=== PATIENT | male | born 1975 | race Caucasian/White ===

== ENCOUNTER 2017-01-29 05:30 | Day surgery (SDC) | payer BC ==
[~2017-01-29] VITALS: Ht 188 cm; Wt 135.2 kg
--- NOTE | ~2017-01-29 | OP ---
PATIENT NAME: ZULAY KENNEY MEDICAL RECORD: [id number] :79 LOCATION:D.OPS ADMISSION DATE: SURGEON: ARIEL FRANCO MD DATE OF OPERATION: 01/29/2017 SURGEON: Ariel Franco MD. ANESTHESIA: MAC by Dr. Rogers. PREOPERATIVE DIAGNOSIS: Male sterilization. PROCEDURE: Vasectomy. FINDINGS: Bilateral vas deferens. SPECIMENS: Bilateral vas segments. ESTIMATED BLOOD LOSS: None. CLINICAL HISTORY: This is a 41-year-old male, who wishes to have elective male sterilization. They have 2 children. He is otherwise in good health. He was given Ancef 2 grams IV mailroom personnel to the OR. DESCRIPTION OF PROCEDURE: The patient was shaved, prepped and draped in supine position. The right vas was identified. Towel clips were placed through the scrotal wall to prevent the vas in migrating away from the field. The skin overlying the vas was infiltrated with Marcaine 0.25% without epinephrine. A #15 blade was used to make a 1-cm incision on the skin overlying the vas. Using a hemostat, we were able to go around the vas deferens and lift it up. The tunics were then stripped using the Bovie. A hemostat was clamped on either end of the vas and then the intervening segment was cut out using a #15 blade. This segment was sent to pathology in formalin. The ends of the vas were cauterized. A 4-0 Prolene was used as a tie for each cut end of the vas deferens. The vas was then placed back into its hemiscrotum and the scrotal skin was closed using simple interrupted 4-0 Vicryl. The same procedure was repeated on the left side and the right side. At the end of the procedure, the mesh panties and fluffs were placed and the patient was brought to the recovery room. TRANSINT:[id number] Voice Confirmation ID: [id number] DOCUMENT ID: [id number] ARIEL FRANCO MD CC: [id number] DICTATION DATE: 01/29/17837 MOTION STUDY ENGINEER: 01/29/[address] [facility] 01/29/[address] [facility] [address] [place] [address]
[~2017-01-29 05:30] MED LIST: FENOFIBRATE160 MG PO; ZANTAC150 MG PO; ZYRTEC10 MG PO
[2017-01-29 06:18] VITALS: BP 137/69; BMI 38.3
[2017-01-29 06:19] VITALS: BP 137/69; Ht 188 cm; Wt 135.2 kg
== END 2017-01-29 09:44 | disposition home or self-care (01) ==
LOC: D.OPS 05:30 → D.PAN 07:30 → D.OPS 07:30
DX: Z30.2 Encounter for sterilization (principal); Z01.812 Encounter for preprocedural laboratory examination

== ENCOUNTER → 2017-03-03 08:21 | Outpatient (CLI) | payer BC ==
[2017-01-29 06:19] VITALS: BMI 38.3
== END | disposition home or self-care (01) ==
LOC: D.LAB 08:21
DX: Z31.41 Encounter for fertility testing (principal)